=== PATIENT | male | born 2000 ===

== ENCOUNTER 2020-08-03 12:25 | Outpatient (REF) | payer OTHER, SELFPAY | END 2020-08-03 12:26 | disposition home or self-care (01) | LOC: HO.LAB 12:25 | PROVIDERS: Visit Provider Internal Medicine | DX: Z20.828 Contact with and (suspected) exposure to other viral communicable diseases (principal) | CPT/HCPCS: C9803; U0003 ==

== ENCOUNTER 2024-10-09 03:23 | Emergency (ER) | payer OTHER, SELFPAY ==
--- NOTE | ~2024-10-09 | XR_ITS ---
CLINICAL HISTORY: punched wall left hand 4th and 5th digit redness 3 view left hand Comparison: None Findings: There is a transverse nondisplaced fracture involving mid shaft of 5th metacarpal with no significant angulation. No dislocation. No additional fractures. No significant arthritic change. No erosions. No radiopaque foreign body. IMPRESSION: 1. Nondisplaced 5th metacarpal shaft fracture with no dislocation. This document has been electronically signed by: Aaliyah Ferris MD on 10/09/2024 04:42:12
[2024-10-09 03:40] VITALS: BP 133/62; PULSE 90; RESP 16; TEMP 36.8; O2SAT 97; BMI 22.8
--- NOTE | 2024-10-09 03:48 | PC.NURSE ---
ice pack given to pt and while waiting for provider and xr of hand.
[2024-10-09 09:08] VITALS: BP 140/79; PULSE 76; RESP 16; TEMP 37; O2SAT 99
[2024-10-09 10:24] VITALS: BP 145/86; PULSE 86; RESP 16; TEMP 36.8; O2SAT 98
--- NOTE | 2024-10-09 10:26 | ED_ITS ---
HPI - Extremity Problem General Chief complaint: Extremity Injury, Upper Stated complaint: l hand inj punched wall Time Seen by Provider: 10/09/24 10:26 History of Present Illness ED Provider: Bell GONZALEZ Narrative: The patient is a 24-year-old male who became upset after an argument with his girlfriend. He punched a wall and injured his left hand. No other injuries. He is not suicidal. Related Data Allergies Allergy/AdvReac Type Severity Reaction Status Date / Time No Known Allergies Allergy Unverified 10/09/24 03:45 Review of Systems Review of Systems: Yes all other systems are reviewed and are negative [facility] Social History Social History Advance Directives: No Advance Directives Information Provided: Yes Do you have a plan to hurt others: No Plan Physical Exam Vital Signs: Vital Signs: Last Vital Signs Temp 98.2 F 10/09/24 11:01 Pulse 86 10/09/24 11:01 Resp 16 10/09/24 11:01 BP 145/86 H 10/09/24 11:01 Pulse Ox 98 10/09/24 11:01 O2 Del Method Room Air 10/09/24 11:01 BMI result Body Mass Index 22.8 Const: Other: The patient is a 24-year-old male. He looks as though he is an ordinarily healthy 24-year-old. Does not appear in acute distress. HEENT: Other: Face is symmetrical. Mucous membranes moist. Eyes: General: appearance normal, both eyes and all related structures Neck: Neck: Yes full ROM Resp: Effort & Inspection: normal respiratory effort Skin: Other: Some mild soft tissue swelling over the ulnar side of the hand. Skin is intact. Neuro: Other: The patient is awake, alert, with a normal mental status. Cranial nerves are grossly intact. Intact sensation in the fingertips. Extrem: Other: The patient has some swelling on the ulnar side of the left hand. No gross deformity. Medications Administered Discontinued Medications Generic Name Dose Route Start Last Admin Trade Name Freq PRN Reason Stop Dose Admin Acetaminophen 975 mg 10/09/24 10:40 10/09/24 10:58 Acetaminophen 325 Mg Tablet PO 10/09/24 10:41 975 mg ONCE ONE Administration Ibuprofen 400 mg 10/09/24 10:40 10/09/24 10:59 Ibuprofen 400 Mg Tablet PO 10/09/24 10:41 400 mg ONCE ONE Administration Medical Decision Making Medical Decision Making MDM Narrative: The patient is a 24-year-old male who sustained an injury to his left hand when he punched a wall. He was upset because of an argument with his girlfriend. He is not suicidal and does not have any plans to harm himself in any other way. X-ray shows a midshaft fracture of the left 5th metacarpal bone without significant angulation. This is a closed fracture. I placed the patient in an ulnar gutter splint. He will be referred to Orthopedics. He was given a sling. Was given a work note. Procedures Orthopedic Splinting/Casting Injury #1: Side: left Upper Extremity Injury Location: hand Upper Extremity Immobilizer: ulnar gutter Additional Comments: Ulnar gutter splint made with cast padding, Orthoglass, and Harmeet bandages. Applied without difficulty. Patient tolerated application of the splint well. The patient remained neurovascularly intact after application of the splint. Discharge Plan Discharge Clinical Impression: Fracture of fifth metacarpal bone of left hand Patient Disposition: Home, Self-Care Instructions: Boxer Fracture (ED) Additional Instructions: You have a fracture of your 5th metacarpal bone. You has been placed in a splint to keep the fracture still. This kind of splint is called a ?ulnar gutter splint.? Please contact the orthopedic office today for a follow up appointment for additional advice and recommendations and management. Try to keep the hand elevated to the level of your heart or higher. This will reduce swelling and this will reduce pain. You may use ibuprofen and acetaminophen as needed for pain. Return to the emergency department if any problems. [place]: [facility] [place] Group] (5th metacarpal fracture) Stand Alone Forms: Work/School Release Interventions: ED Discharge Assessment Last Done: 10/09/24 11:01 Discharge Date/Time: 10/09/24 11:01 Print Language: Barbadian
--- NOTE | 2024-10-09 10:36 | PC.NURSE ---
Dr Luu to bedside for splint placement to left hand and d/c instructions
[2024-10-09] MEDS: Acetaminophen 325 MG TABLET 975 MG PO (10:58)
[2024-10-09] MEDS: Ibuprofen 400 MG TABLET PO (10:59)
[2024-10-09 11:01] VITALS: BP 145/86; PULSE 86; RESP 16; TEMP 36.8; O2SAT 98
--- OUTSIDE RECORDS SUMMARY | 2024-10-09 11:02 | XMS_ITS | Encounter Summary ---
Author Organization [facility] Address [address] [place] [address] Phone Care Team Providers Care Neurology Professor Name Role Phone Rachid Heard MD Primary Care Provider [phone] Encounter Details Date Type Department Care Team (Late st Contact Info) Description 04/06/2017 Conversion Encounter [facility] [address] [place] [address] Social History Tobacco Use Types Packs/Day Years Used Date Smoking Tobacco: Never Comments:Never smoker Sex and Gender Information Value Date Recorded Sex Assigned at Male 04/24/2019 1:28 PM EDT Legal Sex Male 4:56 PM EDT Gender Identity Male 04/24/2019 1:28 PM EDT Sexual Orientation Straight 04/24/2019 1: 28 PM EDT documented as of this encounter Plan of Treatment Not on file documented as of this encounter Visit Diagnoses Not on filedocumented in this encounter Care Teams Neurology Professor Relationship Specialty Start Date End Date Rachid Heard MD [address] [place] [address] PCP - General 03/31/17 09/10/19 documented as of this encounter
--- OUTSIDE RECORDS SUMMARY | 2024-10-09 11:02 | XMS_ITS | Encounter Summary ---
Author Organization [facility] Address [address] [place] [address] Phone Care Team Providers Care Beautician Apprentice Name Role Phone Rachid Heard MD Primary Care Provider [phone] Encounter Details Date Type Department Care Team (Late st Contact Info) Description 06/30/2011 Documentation [facility] [place] [address] [place] [address] Family Medicine, Physician [address] [place], [place] [id number] Social History Tobacco Use Types Packs/Day Years Used Date Smoking Tobacco: Never Assessed Sex and Gender Information Value Date Recorded Sex Assigned at Male 04/24/2019 1:28 PM EDT Legal Sex Male 4:56 PM EDT Gender Identity Male 04/24/2019 1:28 PM EDT Sexual Orientation Straight 04/24/2019 1: 28 PM EDT documented as of this encounter Plan of Treatment Not on file documented as of this encounter Visit Diagnoses Not on filedocumented in this encounter Care Teams Beautician Apprentice Relationship Specialty Start Date End Date Rachid Heard MD [address] [place] [address] [place] [address] PCP - General 03/31/17 09/10/19 documented as of this encounter
--- OUTSIDE RECORDS SUMMARY | 2024-10-09 11:02 | XMS_ITS | Clinical Summary ---
Author Organization [facility] Address [address] [place] [address] Phone Care Team Providers Care Help Aid Name Role Phone Unavailable Primary Care Provider Unavailabl e Allergies No known active allergies Medications No known medications Active Problems Problem Noted Date Diagnosed Date Attention deficit disorder (ADD) without hyperac tivity 04/25/2018 Overview (04/25/2018): Adderall prescribed by [facility] 03/09/2017 Epidermal nevus of scalp and neck 04/21/2016 Complete heart block 01/04/2010 Overview (10/04/2017): Diagnosed in 2000 and treated with pacemaker at [facility]. Yearly follow up at [facility] 2013 he presented to [facility] with chest pain and a troponin leak. Coronary sinus ostial stenosis was found and treated with balloon dilatation. Symptoms resolved. Congenital heart block 01/04/2010 Resolved Problems Problem Noted Date Diagnosed Date Resolved Date Refused influenza vaccine 08/16/2018 Sleep disorder 03/09/2017 04/24/2019 Immunizations Immunization Administration Dates Next Due DTP 1998,1998,1998 DTaP 5 06/19/2003,01/20/2000 HPV, Quadrivalent 12/30/2013,12/13/2012,10/04/19 13 Hep A, ped/adol 01/01/2015,12/30/2013 Hep B, ped/adol 1998,1998,1998 Hib (PRP-T) 01/20/2000, 9,1998,09/02 IPV 06/19/2003,1998,1998 Influenza Split 10/04/2012,06/13/2011 Influenza, injectable, quadr ivalent, preservative free 04/24/2019,04/21/2016,12/30/2013 MMR 06/19/2003,08/09/1999 Meningococcal B Trumenba 04/24/2019,04/25/2018 Meningococcal Conj (Menactra) MCV4P 02/25/2016,1 OPV 08/09/1999 Tdap 06/13/2011 Varicella 12/06/2007,08/09/1999 Family History Medical History Relation Name Comments Testicular cancer Father Les Relation Name Status Comments Brother Marcelinoer Alive Brother: Alive and well Father Les Alive Father: Alive a nd well Maternal Grandmother Materna l grandmother: cancer Mother Faby Alive Mother: Hyperte nsion Other Family history of Diabetes mellitus, Family history of Obesity, No family history of *Dental caries, Family history of *Sudden /[place] under 55, Family history of *Heart Disease, Family history of Sudden /[place] under age 55, Family history of *CVA/Stroke Sister Harmony Alive Sister: Alive a nd well Social History Tobacco Use Types Packs/Day Years Used Date Smoking Tobacco: Never Smokeless Tobacco: Never Comments:Never smoker Hunger/Food Answer Date Recorded No 05/16/2020 Stable Housing Answer Date Recorded No 05/16/2020 Transportation Concerns Answer Date Rec orded No 05/16/2020 Hazards in Home Answer Date Recorded No 07/04/2020 Financing Utilities Answer Date Recorde d No 07/04/2020 Safety at Home Answer Date Recorded No 07/04/2020 Outside Support Answer Date Recorded No 07/04/2020 Understanding Health Concerns Answer Da te Recorded No 07/04/2020 Financing Health Concerns Answer Date R ecorded No 07/04/2020 Missing School or Work Answer Date Nicolas rded No 07/04/2020 Sex and Gender Information Value Date Recorded Sex Assigned at Male 04/24/2019 1:28 PM EDT Legal Sex Male 4:56 PM EDT Gender Identity Male 04/24/2019 1:28 PM EDT Sexual Orientation Straight 04/24/2019 1: 28 PM EDT Last Filed Vital Signs Vital Sign Reading Time Taken Comments Blood Pressure 115/76 04/24/2019 1:04 PM EDT Pulse 73 04/24/2019 1:04 PM EDT Temperature 36.8 ??C (98.3 ??F) 06/20/2018 4:36 PM ED T Respiratory Rate - - Oxygen Saturation - - Inhaled Oxygen Concentration - - Weight 82.6 kg (182 lb) 04/24/2019 1:04 PM EDT Height 175.3 cm (5' 9 ) 04/24/2019 1:04 PM EDT Body Mass Index 26.88 04/24/2019 1:04 PM EDT Plan of Treatment Health Maintenance Due Date Last Done Comments DTaP,Tdap,and Td Vaccines (7 - Td or Tdap) 06/13/2021 06/13/2011, 06/19/2003, 01/20/2000, Additional history exists Influenza Vaccines (#1) 2024 04/24/20, 04/21/2016, 12/30/2013, Additional history exists COVID-19 Vaccine ( season) 2024 01/11/2021, 12/21/2020 Hepatitis B Vaccines Completed 1998, 1998, 1998 HIB Vaccines Completed 01/20/2000, 12/19, 1998, Additional history exists IPV Vaccines Completed 06/19/2003, 07/22, 1998, Additional history exists MMR Vaccines Completed 06/19/2003, 08/09/1999 Varicella Vaccines Completed 12/06/2007, 08/09/1999 HPV Vaccines Completed 12/30/2013, 11/20, 10/04/2012 Hepatitis A Vaccines Completed 01/01/2015, 12/31/19 14 Meningococcal Vaccine Completed 02/25/2016, 011 Men B Vaccine Completed 04/24/2019, 04/25/2018 Pneumococcal Vaccine Aged Out No long er eligible based on patient's age to complete this topic Insurance [facility] NON PCC
--- OUTSIDE RECORDS SUMMARY | 2024-10-09 11:02 | XMS_ITS | Encounter Summary ---
Author Organization [facility] Address [address] [place] [address] Phone Care Team Providers Care Waterworks Chief Engineer Name Role Phone Rachid Heard MD Primary Care Provider [phone] Encounter Details Date Type Department Care Team (Late st Contact Info) Description 06/30/2011 Documentation [facility] [place] [address] [place] [address] Family Medicine, Physician [address] [place], [place] [phone] Social History Tobacco Use Types Packs/Day Years [...] on filedocumented in this encounter Care Teams Waterworks Chief Engineer Relationship Specialty Start Date End Date Rahcid Heard MD [address] [place] [address] [place] [address] PCP - General 03/31/17 09/10/19 documented as of this encounter
--- OUTSIDE RECORDS SUMMARY | 2024-10-09 11:03 | XMS_ITS | Encounter Summary ---
Author Organization [facility] Address [address] [place] [address] Phone Care Team Providers Care Bookkeeping Manager Name Role Phone Rachid Heard MD Primary Care Provider [phone] Encounter Details Date Type Department Care Team (Late st Contact Info) Description 09/26/2013 Documentation [facility] [place] Family Medicine [address] [place], [place] [phone] Family Medicine, Physician [address] [place], [place] [phone] Social History Tobacco Use Types Packs/Day Years [...] on filedocumented in this encounter Care Teams Bookkeeping Manager Relationship Specialty Start Date End Date Rachid Heard MD [address] [place] [address] [place] [address] PCP - General 03/31/17 09/10/19 documented as of this encounter
== END 2024-10-09 11:01 | disposition home or self-care (01) ==
PROVIDERS: Emergency Provider Emergency Medicine
DX: S62.327A Displaced fracture of shaft of fifth metacarpal bone, left hand, initial encounter for closed fracture (principal); W22.09XA Striking against other stationary object, initial encounter; Y93.89 Activity, other specified; Y92.9 Unspecified place or not applicable; Y99.9 Unspecified external cause status
CPT/HCPCS: 29125; 73110; 73130; 99283

== ENCOUNTER → 2024-10-09 03:50 | Outpatient (BNV) | payer OTHER, SELFPAY | PROVIDERS: Visit Provider Specialist | DX: S62.357A Nondisplaced fracture of shaft of fifth metacarpal bone, left hand, initial encounter for closed fracture (principal) | CPT/HCPCS: 73130 ==

== ENCOUNTER 2024-10-15 09:16 | Outpatient (REF) | payer OTHER, SELFPAY ==
--- NOTE | ~2024-10-15 | XR_ITS ---
CLINICAL HISTORY: M79.642 - Pain in left hand 4 views left hand Comparison: CR - XR HAND WRIST LT - 10/09/24 04:02 EST Findings: Complete transverse fracture through the shaft of the 5th metacarpal bone shows no interval healing.No change in the mild angulation deformity. No foreshortening No periostitis or bony destruction. Joint intervals are preserved. Ulnar styloid perserved. Normal bone mineralization and soft tissues. Carpal bones unremarkable.. No radiopaque foreign body. Impression: 1. Complete transverse fracture through the mid shaft of the 5th metacarpal bone with no interval healing. No foreshortening or significant change in the subtle angulation deformity. This document has been electronically signed by: Carlos A Mercado MD on 10/16/2024 12:14:09
== END 2024-10-15 09:17 | disposition home or self-care (01) ==
LOC: HO.HOSX 09:16
PROVIDERS: Visit Provider Orthopaedic Surgery
DX: S62.357D Nondisplaced fracture of shaft of fifth metacarpal bone, left hand, subsequent encounter for fracture with routine healing (principal); M79.642 Pain in left hand
CPT/HCPCS: 73130

== ENCOUNTER 2024-10-15 13:04 | Outpatient (AMB) | payer OTHER, SELFPAY ==
--- NOTE | 2024-10-15 13:16 | A.OFFVIS_ITS ---
Intake Visit Reasons: FC-of 5th metacarpal bone of LT hand-DOI 10/09/24 Intake Note: Tico is a 24 year old male who presents today for a an ER follow up of left hand 5th MC fx, DOI 10/09/24. He is ambidextrious. Patient reports out of frustration he punched a wall. He presnted to [facility] same day where x-rays were taken and placed in a splint. Splint removed and x-rays updated. Currently he reports some pain and numbness in his pinky finger and half of the ring finger. He is taking Tylenol as needed. Back Feeder Plywood Layup Line Required: No Allergies No Known Allergies Allergy (Unverified 10/15/24 13:34) Medication List - Last Reconciled 10/15/24 by Melissa Rust RN No Known Home Meds HPI HPI FC-of 5th metacarpal bone of LT hand-DOI 10/09/24: Details: Tico is a 24 year old right hand dominant man who presents for a left 5th metacarpal fracture, after punching a wall, DOI: 10/09/24. He was seen in the ED and placed in an ulnar gutter splint. He complains of pain & numbness in his small finger. He also has some numbness in his ring finger. His sensation was normal prior to his injury. Review of Systems Const All systems reviewed & are unremarkable except as noted in HPI and below Physical Exam Const General: cooperative, healthy appearing and no acute distress Orientation/consciousness: patient oriented x3 HEENT Head: Yes normocephalic and Yes atraumatic Eyes EOM: EOMs intact bilaterally Resp Effort & Inspection: normal respiratory effort and able to speak in complete sentences Cardio Jugular venous distension: no JVD Skin General skin exam: turgor normal Rashes: no rashes Neuro General: patient oriented x3 Extrem Other: Evaluation of Left Upper Extremity: The patient is alert, oriented, and in no acute distress Neuro: Median, Ulnar, Radial nerves motor and sensory intact and sensation is normal to the tips of all digits Vascular: Cap refill brisk ROM: He can make a fist and extend all his digits Skin: No lacerations or abrasions or evidence of open fracture General: No Erythema or evidence of infection. Resolving ecchymosis & swelling Most tender over the fracture site Radiographs: 3 views of the left hand were taken and viewed by me today in clinic. they show a 5th metacarpal shaft fracture with ~20 degrees apex dorsal angulation Psych Appearance: grossly normal Affect: normal affect Attitude: cooperative Assessment & Plan Assessment & Plan (1) Fracture of fifth metacarpal bone of left hand: Code(s): S62.307A - Unspecified fracture of fifth metacarpal bone, left hand, initial encounter for closed fracture Category: Medical Plan Assessment & Plan: 1. Left 5th metacarpal shaft fracture, 20 degrees apex dorsal From a punching injury, DOI: 10/09/24 I educated him about this condition I discussed operative and non-operative treatment options The patient would like to proceed with surgery The risks and benefits of operative treatment were discussed with the patient and the patient wishes to proceed with surgery. These risks include, but are not limited to risk of damage to blood vessels, nerves, tendons, infection, recurrence, incomplete relief of preoperative symptoms, persistent pain, possible need for further surgery and the risks associated with regional blocks and anesthesia. The plan is to take the patient to the operating room sometime on 10/17/24 for the following procedures: 1. Left 5th metacarpal CRPP vs ORIF, under general All of the preoperative paperwork including the consent was reviewed today. All the patient's questions were answered. The patient understands that they will be contacted by our box covering machine operator soon to schedule this procedure He denies Diabetes, blood thinners, asthma, heart, lung, kidney issues He has a pacemaker from a congenital heart issue. Dr. Aleman at [facility] as his glass cutting machine feeder who he reportedly saw 5 months ago. Scribed for Ashley Bourgeois MD by Wilmer Starkey emergency medical service coordinator, on 10/15/24 at 1:45 PM, EST. Orders: Orders XR hand LT min 3V Today M79.642 - Pain in left hand Coding Level of Care Code New Pt Level 4 (06677) Diagnoses Fracture of fifth metacarpal bone of left hand S62.307A
--- OUTSIDE RECORDS SUMMARY | 2024-10-15 16:01 | XMS_ITS | Encounter Summary ---
Author Organization [facility] Address [address] [place] [address] Phone Care Team Providers Care Bank Accountant Name Role Phone Rachid Heard MD Primary Care Provider Encounter Details Date Type Department Care Team (Late st Contact Info) Description 06/30/2011 Documentation [facility] [place] [address] [place] [address] Family Medicine, Physician [address] [place], [place] [phone] Social History Tobacco Use Types Packs/Day Years [...] on filedocumented in this encounter Care Teams Bank Accountant Relationship Specialty Start Date End Date Rachid Heard MD [address] [place] [address] [place] [address] PCP - General 03/31/17 09/10/19 documented as of this encounter
--- OUTSIDE RECORDS SUMMARY | 2024-10-15 16:01 | XMS_ITS | Encounter Summary ---
Author Organization [facility] Address [address] [place] [address] Phone Care Team Providers Care Behavior Clinician Name Role Phone Rachid Heard MD Primary Care Provider [phone] Encounter Details Date Type Department Care Team (Late st Contact Info) Description 06/30/2011 Documentation [facility] [place] Medicine [address] [place] [address] Family Medicine, Physician [address] [place], [place] [phone] Social History Tobacco Use Types Packs/Day Years [...] on filedocumented in this encounter Care Teams Behavior Clinician Relationship Specialty Start Date End Date Rachid Heard MD [address] [place] [address] [place] [address] PCP - General 03/31/17 09/10/19 documented as of this encounter
--- OUTSIDE RECORDS SUMMARY | 2024-10-15 16:01 | XMS_ITS | Clinical Summary ---
Author Organization [facility] Address [address] [place] [address] Phone Care Team Providers Care Pulp Refiner Operator Name Role Phone Unavailable Primary Care Provider Unavailabl e Allergies No known active allergies Medications No known medications Active Problems Problem Noted Date Diagnosed Date Attention deficit disorder (ADD) without hyperac tivity 04/25/2018 Overview (04/25/2018): Adderall prescribed by [facility] 03/09/2017 Epidermal nevus of scalp and neck 04/21/2016 Complete heart block 01/04/2010 Overview (10/04/2017): Diagnosed in 2000 and treated with pacemaker at [facility]. Yearly follow up at [facility] 2013 he presented to [facility] with chest pain and a troponin [...] of *Dental caries, Family history of *Sudden /[place] under 55, Family history of *Heart Disease, Family history of Sudden /[place] under age 55, Family history of *CVA/Stroke [...] 07/04/2020 Missing School or Work Answer Date Nioclas rded No 07/04/2020 Sex and Gender Information [...] patient's age to complete this topic Insurance [facility] NON PCC
--- OUTSIDE RECORDS SUMMARY | 2024-10-15 16:01 | XMS_ITS | Encounter Summary ---
Author Organization [facility] Address [address] [place] [address] Phone Care Team Providers Care Facer Operator Name Role Phone Rachid Heard MD Primary Care Provider [phone] Encounter Details Date Type Department Care Team (Late st Contact Info) Description 09/26/2013 Documentation [facility] [place] Family Medicine [address] [place], [place] [phone] Family Medicine, Physician [address] [place], [place] [phone] Social History Tobacco Use Types Packs/Day Years [...] on filedocumented in this encounter Care Teams Facer Operator Relationship Specialty Start Date End Date Rachid Heard MD [address] [place] [address] [place] [address] PCP - General 03/31/17 09/10/19 documented as of this encounter
--- OUTSIDE RECORDS SUMMARY | 2024-10-15 16:01 | XMS_ITS | Encounter Summary ---
Author Organization [facility] Address [address] [place] [address] Phone Care Team Providers Care E Commerce Manager Name Role Phone Rachid Heard MD Primary Care Provider [phone] Encounter Details Date Type Department Care Team (Late st Contact Info) Description 04/06/2017 Conversion Encounter [facility] [address] [place] [address] Social History Tobacco Use Types Packs/Day Years [...] on filedocumented in this encounter Care Teams E Commerce Manager Relationship Specialty Start Date End Date Rachid Heard MD [address] [place] [address] PCP - General 03/31/17 09/10/19 documented as of this encounter
== END 2024-10-15 14:23 | disposition home or self-care (01) ==
PROVIDERS: Visit Provider Orthopaedic Surgery
DX: S62.307A Unspecified fracture of fifth metacarpal bone, left hand, initial encounter for closed fracture (principal)
CPT/HCPCS: 99204

== ENCOUNTER → 2024-10-15 13:07 | Outpatient (BNV) | payer OTHER, SELFPAY | PROVIDERS: Visit Provider Radiology Diagnostic Radiology | DX: S62.357A Nondisplaced fracture of shaft of fifth metacarpal bone, left hand, initial encounter for closed fracture (principal) | CPT/HCPCS: 73130 ==

== ENCOUNTER 2024-10-17 07:43 | Day surgery (SDC) | payer OTHER, SELFPAY ==
--- NOTE | 2024-10-16 12:19 | P.CONAN_ITS ---
Documented by User: Karishma Regan NP 10/16/24 12:22 HPI - Anesthesia Eval Consult details Narrative: 24yo M for Left 5th Metacarpal CRPP vs ORIF Follows [facility] Cardiology for: Congenital heart block with pacer at age 1. Changed to [employer] 2012 d/t concerns of pacer-mediated CMP (48% at that time?) Last office visit 12/2023, stable with 1 year routine f/u Requested last interrogation and ECHO - MERON Delgado at ortho office working on it [facility] Past Medical History Medical History Hx of cardiac pacemaker Congenital heart block Social History Social History Tobacco use type: Smokeless Tobacco Meds Allergies Allergy/AdvReac Type Severity Reaction Status Date / Time No Known Allergies Allergy Unverified 10/15/24 13:34 Assessment and Plan Assessment Anesthesia Assessment: Chart Reviewed Documented by User: Jennifer Campbell MD 10/17/24 12:30 [facility] Past Medical History Medical History Hx of cardiac pacemaker Congenital heart block Family History Family history of problems with anesthesia: No Surgical History History of Problems with Anesthesia: No Social History Social History Tobacco use type: Smokeless Tobacco Meds Allergies Allergy/AdvReac Type Severity Reaction Status Date / Time No Known Allergies Allergy Unverified 10/15/24 13:34 Exam Airway Mallampati Class: II TM Dist: >3cm Neck ROM: Full Heart: rrr Lungs: cta Assessment and Plan Assessment Anesthesia Assessment: Anesthesia Plan Discussed Final Anesthetic Review Family History of Problems with Anesthesia: No History of Problems with Anesthesia: No NPO: Yes ASA Class: III Final Preanesthetic Review: No Changes in Pt Med Stat, Meds/Allgs Chart Reviewed, Consent Obtained/Reviewed and Anes Risks/Benef Reviewed Patient Risk: Intermediate Procedure Risk: Low Anesthetic Plan Anesthetic Plan: GA Disposition: Standard PACU
--- NOTE | ~2024-10-17 | FL_ITS ---
EXAMINATION: FL GUIDANCE ONLY HISTORY: 5th metacarpal CRPP vs ORIF left COMPARISON: Comparison is made with the prior examination of the left hand dated 10/15/2024. TECHNIQUE: Fluoroscopy time: 7.2 seconds. Cumulative Dose: 0.2398 mGy. DAP: 0.0145 mGym2 Images: 4. FINDINGS: Images demonstrate placement of the wire across the previously noted fracture of the 5th metacarpal diaphysis. The bones are in anatomic alignment. FL/FL guidance in OR IMPRESSION: Fluoroscopy during procedure. Please see procedure report for additional information. Electronically signed by: Robinson Sánchez MD 10/17/2024 03:24 PM AMIRAH
[2024-10-17 07:54] VITALS: BMI 23.1
[2024-10-17 08:10] VITALS: BP 111/69; PULSE 66; RESP 15; TEMP 36.6; O2SAT 98
[2024-10-17] MEDS: Lactated Ringers 1,000 ML 50 ML IVCONT (08:32)
--- NOTE | 2024-10-17 09:00 | MHC.SHP ---
Pre-Procedural Eval Section A - 24 Hr Update-Section A only Date of Service: 10/17/24 The patient is an INPATIENT: No Changes since office visit: No Cold of Flu in the past 2 weeks, No New Medical Problems, No Changes in Medication and No Patient answered all questions The patient has been examined within 24 hours of the surgical procedure. The History & Physical has been completed within 30 days and I have reviewed it.: Yes Section B - Complete if H&P > 30 days Chief Complaint: Unspecified fracture of fifth metacarpal bone, Allergies: Allergies Allergy/AdvReac Type Severity Reaction Status Date / Time No Known Allergies Allergy Unverified 10/15/24 13:34 Plan Diagnosis/Plan: Unchanged I have reviewed the history and physical and performed a pertinent physical examination on my patient. No changes have occurred unless specified. Time Spent With Patient Time: Total time managing care of this patient today ____ minutes.
--- NOTE | 2024-10-17 09:04 | W.PM.OPN ---
Operative Note Operative Note Date of Service: 10/17/24 Narrative: Operative Note Narrative: Preop diagnosis: 1. Left 5th Metacarpal shaft fracture Postop diagnosis: Same Procedure: 1. Left 5th Metacarpal fracture closed reduction percutaneous pinning 2. Ulnar nerve block Surgeon: Ashley Bourgeois MD Pharmacy Analyst: Roscoe DAVIS Anesthesia: General Anesthesia Findings: Metacarpal fracture Implants: 0.054 K-wires times 1 Tourniquet time: None EBL: Minimal Specimen: None Drains: None Complications: None Disposition: Brought to the recovery room in stable condition Plan: Follow-up in 10-14 days for a wound check, postop radiographs and for placement in a short-arm cast or splint Anticipate K-wire removal in 4 weeks based on interval bony healing Educate the patient that full fracture healing anticipated in approximately 8-12 weeks. Indications: The patient is 24 years old with a left 5th metacarpal shaft fracture . The risks and benefits of operative treatment, including but not limited to risk of damage to blood vessels, nerves, tendons, infection, recurrence, delayed or nonunion of fracture, persistent pain or numbness, incomplete resolution of preoperative symptoms, or need for further surgery were discussed with the patient and they wished to proceed with surgery. Procedure: Once consent was obtained patient was brought back to the operating suite and placed in the operating table in a supine position. . Perioperative antibiotics and general anesthesia was administered by the anesthesia team. A tourniquet was applied to the proximal aspect of the left upper extremity and the limb was prepped and draped in a standard surgical fashion. Tourniquet was not inflated during the case. The FluoroScan was used during the case to assist with our fracture reduction and placement of all implants. A closed reduction was performed on the patient's left 5th metacarpal shaft fracture. I placed a single 0.054 K-wire retrograde through the head of the left 5th metacarpal extending proximally across the fracture site to the base of the metacarpal. Fracture alignment was assessed for both angular and rotational malalignment. Once satisfied with our fracture reduction and implant placement, the K-wire was bent and cut short and pin caps applied. Final fluoroscopic images were then obtained. The wounds were copiously irrigated with normal saline. An ulnar nerve block was then performed by infiltrating about the ulnar nerve at the wrist with some 1% lidocaine with epinephrine for postop pain control. A Sterile dressing and short volar splint was applied. The patient appears to have tolerated the procedure well and with no complications. All digits were well vascularized at the conclusion of the case.
[2024-10-17 10:07] VITALS: BP 95/40; PULSE 60; RESP 12; TEMP 37; O2SAT 97
[2024-10-17 10:12] VITALS: BP 99/47; PULSE 60; RESP 14; O2SAT 99
[2024-10-17 10:17] VITALS: BP 104/48; PULSE 64; RESP 14; O2SAT 97
[2024-10-17 10:22] VITALS: BP 104/57; PULSE 71; RESP 16; O2SAT 99
[2024-10-17 10:37] VITALS: BP 105/54; PULSE 65; RESP 16; TEMP 37; O2SAT 100
== END 2024-10-17 11:21 | disposition home or self-care (01) ==
PROVIDERS: Visit Provider Orthopaedic Surgery
PROC: (CPT 26615; principal; 2024-10-17 09:30)
DX: S62.327A Displaced fracture of shaft of fifth metacarpal bone, left hand, initial encounter for closed fracture (principal); M79.645 Pain in left finger(s); R20.0 Anesthesia of skin; W22.09XA Striking against other stationary object, initial encounter; Y93.89 Activity, other specified; Y92.9 Unspecified place or not applicable; Y99.9 Unspecified external cause status; Q24.6 Congenital heart block; Z95.0 Presence of cardiac pacemaker
CPT/HCPCS: 26608; J0131; J0690; J1100; J2003; J2004; J2250; J2405; J2704; J3010

== ENCOUNTER → 2024-10-17 07:43 | Outpatient (BNV) | payer OTHER, SELFPAY | PROVIDERS: Visit Provider Orthopaedic Surgery | DX: S62.307A Unspecified fracture of fifth metacarpal bone, left hand, initial encounter for closed fracture (principal) | CPT/HCPCS: 26608 ==

== ENCOUNTER 2024-11-01 08:47 | Outpatient (REF) | payer OTHER, SELFPAY ==
--- NOTE | ~2024-11-01 | XR_ITS ---
EXAMINATION: XR HAND 3 OR MORE VIEWS LEFT HISTORY: M79.642 - Pain in left hand COMPARISON: Comparison is made with the prior examination dated 10/15/2024. FINDINGS: Three views of the left hand are submitted. Osseous mineralization is normal. Interval since the prior study, the patient is status post internal fixation of the previously seen fracture of the midshaft of the 5th metacarpal with a single pin. Alignment is anatomic. There is callus formation noted at the fracture site, consistent with healing. The fracture line remains visible. The joint spaces are preserved. The soft tissues are unremarkable. XR/XR hand LT min 3V IMPRESSION: Healing internally fixed fracture of the midshaft of the 5th metacarpal. Electronically signed by: Robinson Sánchez MD 11/01/2024 10:41 AM EDT
--- OUTSIDE RECORDS SUMMARY | 2024-11-01 09:05 | XMS_ITS | Encounter Summary ---
Author Organization [facility] Address [address] [place] [address] Phone Care Team Providers Care Granite Countertop Installer Name Role Phone Rachid Heard MD Primary Care Provider [phone] Encounter Details Date Type Department Care Team (Late st Contact Info) Description 04/06/2017 Conversion Encounter [facility] [place] [address] [place] [address] Social History Tobacco Use Types Packs/Day Years [...] on filedocumented in this encounter Care Teams Granite Countertop Installer Relationship Specialty Start Date End Date Rachid Heard MD [address] [place] [address] PCP - General 03/31/17 09/10/19 documented as of this encounter
--- OUTSIDE RECORDS SUMMARY | 2024-11-01 09:05 | XMS_ITS | Encounter Summary ---
Author Organization [facility] Address [address] [place] [address] Phone Care Team Providers Care Commercial Journeyman Electrician Name Role Phone Rachid Heard MD Primary Care Provider [phone] Encounter Details Date Type Department Care Team (Late st Contact Info) Description 06/30/2011 Documentation [facility] [place] Family Medicine [address] [place] [address] Family Medicine, Physician [address] [place], [place] [phone] Social History Tobacco Use Types Packs/Day Years [...] on filedocumented in this encounter Care Teams Commercial Journeyman Electrician Relationship Specialty Start Date End Date Rachid Heard MD [address] [place] [address] [place] [address] PCP - General 03/31/17 09/10/19 documented as of this encounter
--- OUTSIDE RECORDS SUMMARY | 2024-11-01 09:05 | XMS_ITS | Encounter Summary ---
Author Organization [facility] Address [address] [place] [address] Phone Care Team Providers Care Terrazzo Mechanic Name Role Phone Rachid Heard MD Primary Care Provider [phone] Encounter Details Date Type Department Care Team (Late st Contact Info) Description 06/30/2011 [place] [facility] [place] [address] [place] [address] Family Medicine, Physician [address] [place], [place] [phone] Social History Tobacco Use Types Packs/Day Years [...] on filedocumented in this encounter Care Teams Terrazzo Mechanic Relationship Specialty Start Date End Date Rachid Heard MD [address] [place] [address] [place] [address] PCP - General 03/31/17 09/10/19 documented as of this encounter
--- OUTSIDE RECORDS SUMMARY | 2024-11-01 09:05 | XMS_ITS | Clinical Summary ---
Author Organization [facility] Address [address] [place] [address] Phone Care Team Providers Care Financial Retirement Plan Specialist Name Role Phone Unavailable Primary Care Provider Unavailabl e Allergies No known active allergies Medications No known medications Active Problems Problem Noted Date Diagnosed Date Attention deficit disorder (ADD) without hyperac tivity 04/25/2018 Overview (04/25/2018): Adderall prescribed by [facility] 03/09/2017 Epidermal nevus of scalp and neck 04/21/2016 Complete heart block 01/04/2010 Overview (10/04/2017): Diagnosed in 2000 and treated with pacemaker at [facility]. Yearly follow up at [facility] 2013 he presented to [facility] with chest pain and a troponin [...] of *Dental caries, Family history of *Sudden /OR under 55, Family history of *Heart Disease, Family history of Sudden /OR under age 55, Family history of *CVA/Stroke [...] patient's age to complete this topic Insurance [facility] NON PCC
--- OUTSIDE RECORDS SUMMARY | 2024-11-01 09:05 | XMS_ITS | Encounter Summary ---
Author Organization [facility] Address [address] [place] [address] Phone Care Team Providers Care Security Incident Handler Name Role Phone Rachid Heard MD Primary Care Provider [phone] Encounter Details Date Type Department Care Team (Late st Contact Info) Description 09/26/2013 Documentation [facility] [place] Family Medicine [address] [place], [place] [phone] Family Medicine, Physician [address] [place], [place] [phone] Social History Tobacco Use Types Packs/Day Years [...] on filedocumented in this encounter Care Teams Security Incident Handler Relationship Specialty Start Date End Date Rachid Heard MD [address] [place] [address] [place] [address] PCP - General 03/31/17 09/10/19 documented as of this encounter
== END 2024-11-01 08:48 | disposition home or self-care (01) ==
LOC: HO.HOSX 08:47
DX: M79.642 Pain in left hand (principal); S62.302D Unspecified fracture of third metacarpal bone, right hand, subsequent encounter for fracture with routine healing
CPT/HCPCS: 73130

== ENCOUNTER 2024-11-01 09:04 | Outpatient (AMB) | payer OTHER, SELFPAY ==
--- NOTE | 2024-11-01 09:08 | MHC.OFFVIS ---
Vital Signs 11/01/24 09:09 Height 5 ft 10 in Weight 160 lb BMI 23.0 Intake Visit Reasons: PO LT 5th MC ORIF 10/17/24 AR Intake Note: Tico is a 24 year old right hand dominant male who presents today post-operatively s/p left 5th metacarpal ORIF, DOS: 10/17/24, by Dr. Bourgeois. Plans for today include short-arm cast or splint with anticipation of K-wire removal in 2 weeks. Patient reports he does not have any pain but does have some tingling in his 4th and 5th digits. Allergies No Known Allergies Allergy (Unverified 11/01/24 09:08) HPI HPI PO LT 5th MC ORIF 10/17/24 AR: Details: Tico is a 24 year old right hand dominant male who presents today post-operatively s/p left 5th metacarpal ORIF, DOS: 10/17/24, by Dr. Bourgeois. Plans for today include short-arm cast or splint with anticipation of K-wire removal in 2 weeks. Patient reports he does not have any pain but does have some tingling in his 4th and 5th digits. Denies any other acute complaints or concerns at this time [facility] Medical History Hx of cardiac pacemaker Congenital heart block Social History Tobacco use type: Smokeless Tobacco Review of Systems Const All systems reviewed & are unremarkable except as noted in HPI and below Physical Exam Vital Signs: BMI result Body Mass Index 23.0 Const General: cooperative, healthy appearing and no acute distress Orientation/consciousness: patient oriented x3 HEENT Head: Yes normocephalic and Yes atraumatic Eyes EOM: EOMs intact bilaterally Resp Effort & Inspection: normal respiratory effort and able to speak in complete sentences Cardio Jugular venous distension: no JVD Skin General skin exam: turgor normal Rashes: no rashes Neuro General: patient oriented x3 Extrem Other: Evaluation of Left Upper Extremity: The patient is alert, oriented, and in no acute distress Neuro: Median, Ulnar, Radial nerves motor and sensory intact and sensation is normal to the tips of all digits Vascular: Cap refill brisk ROM: He can make a fist and extend all his digits Skin: No lacerations or abrasions or evidence of open fracture Pin site noted on the dorsal aspect of the left small finger MCP joint, no evidence of infection General: No Erythema or evidence of infection. Resolving ecchymosis & swelling Mildly tender over the fracture site Psych Appearance: grossly normal Affect: normal affect Attitude: cooperative Results Reviewed Results Reviewed: X-rays obtained in the office today and independently reviewed by me, Roscoe Burden PA-C, demonstrate surgically reduced fracture of the left 5th metacarpal shaft with all orthopedic hardware in place, in satisfactory clinical alignment, and with evidence of interval bony healing. Assessment & Plan Assessment & Plan (1) Fracture of fifth metacarpal bone of left hand: Code(s): S62.307A - Unspecified fracture of fifth metacarpal bone, left hand, initial encounter for closed fracture Category: Medical Plan 1. Status post CRPP of left 5th metacarpal DOS 10/17/2024 Patient appears to be recovering well postoperatively Patient is educated about the typical recovery course At this time, patient was placed into a 2 finger ulnar gutter cast Patient is educated on proper cast care and precautions Patient will follow-up in 2 weeks with repeat x-rays for reassessment, anticipate cast removal at that time, sooner with any acute concerns Orders: Orders XR hand LT min 3V Today M79.642 - Pain in left hand Coding Level of Care Code Global (86940) Diagnoses Fracture of fifth metacarpal bone of left hand S62.307A
[2024-11-01 09:09] VITALS: BMI 23.0
--- OUTSIDE RECORDS SUMMARY | 2024-11-01 09:36 | XMS_ITS | Encounter Summary ---
Author Organization [facility] Address [address] [place] [address] Phone Care Team Providers Care Banquet Houseperson Name Role Phone Rachid Heard MD Primary Care Provider [phone] Encounter Details Date Type Department Care Team (Late st Contact Info) Description 04/06/2017 Conversion Encounter [facility] [place] [address] [place] [address] Social History Tobacco Use Types Packs/Day Years [...] on filedocumented in this encounter Care Teams Banquet Houseperson Relationship Specialty Start Date End Date Rachid Heard MD [address] [place] [address] PCP - General 03/31/17 09/10/19 documented as of this encounter
--- OUTSIDE RECORDS SUMMARY | 2024-11-01 09:37 | XMS_ITS | Encounter Summary ---
Author Organization [facility] Address [address] [place] [address] Phone Care Team Providers Care Specifications Checker Name Role Phone Rachid Heard MD Primary Care Provider [phone] Encounter Details Date Type Department Care Team (Late st Contact Info) Description 06/30/2011 Documentation [facility] [place] Family Medicine [address] [place] [address] Family Medicine, Physician [address] [place], [place] [phone] Social History Tobacco Use Types Packs/Day Years [...] on filedocumented in this encounter Care Teams Specifications Checker Relationship Specialty Start Date End Date Rachid Heard MD [address] [place] [address] [place] [address] PCP - General 03/31/17 09/10/19 documented as of this encounter
--- OUTSIDE RECORDS SUMMARY | 2024-11-01 09:37 | XMS_ITS | Encounter Summary ---
Author Organization [facility] Address [address] [place] [address] Phone Care Team Providers Care Wound/Ostomy Nurse Name Role Phone Rachid Heard MD Primary Care Provider [phone] Encounter Details Date Type Department Care Team (Late st Contact Info) Description 06/30/2011 Documentation [facility] [place] [address] [place] [address] Family Medicine, Physician [address] [place], [place] [phone] Social History Tobacco Use Types Packs/Day Years [...] on filedocumented in this encounter Care Teams Wound/Ostomy Nurse Relationship Specialty Start Date End Date Rachid Heard MD [address] [place] [address] [place] [address] PCP - General 03/31/17 09/10/19 documented as of this encounter
--- OUTSIDE RECORDS SUMMARY | 2024-11-01 09:37 | XMS_ITS | Clinical Summary ---
Author Organization [facility] Address [address] [place] [address] Phone Care Team Providers Care Electric Arc Furnace Operator Name Role Phone Unavailable Primary Care Provider Unavailabl e Allergies No known active allergies Medications No known medications Active Problems Problem Noted Date Diagnosed Date Attention deficit disorder (ADD) without hyperac tivity 04/25/2018 Overview (04/25/2018): Adderall prescribed by [facility] 03/09/2017 Epidermal nevus of scalp and neck 04/21/2016 Complete heart block 01/04/2010 Overview (10/04/2017): Diagnosed in 2000 and treated with pacemaker at [facility]. Yearly follow up at [facility] 2013 he presented to [facility] with chest pain and a troponin [...] of *Dental caries, Family history of *Sudden /[place] under 55, Family history of *Heart Disease, Family history of Sudden /[place] under age 55, Family history of *CVA/Stroke [...] patient's age to complete this topic Insurance [facility] NON PCC
--- OUTSIDE RECORDS SUMMARY | 2024-11-01 09:37 | XMS_ITS | Encounter Summary ---
Author Organization [facility] Address [address] [place] [address] Phone Care Team Providers Care Mold Closer Name Role Phone Rachid Heard MD Primary Care Provider [phone] Encounter Details Date Type Department Care Team (Late st Contact Info) Description 09/26/2013 Documentation [facility] [place] [address] [place], [place] [phone] Family Medicine, Physician [address] [place], [place] [phone] Social History Tobacco Use Types Packs/Day Years [...] on filedocumented in this encounter Care Teams Mold Closer Relationship Specialty Start Date End Date Rachid Heard MD [address] [place] [address] [place] [address] PCP - General 03/31/17 09/10/19 documented as of this encounter
== END 2024-11-01 10:13 | disposition home or self-care (01) ==
LOC: HO.HOS 09:05
DX: S62.307A Unspecified fracture of fifth metacarpal bone, left hand, initial encounter for closed fracture (principal)
CPT/HCPCS: 99024

== ENCOUNTER → 2024-11-01 09:07 | Outpatient (BNV) | payer OTHER, SELFPAY | PROVIDERS: Visit Provider Radiology Diagnostic Radiology | DX: S62.327D Displaced fracture of shaft of fifth metacarpal bone, left hand, subsequent encounter for fracture with routine healing (principal) | CPT/HCPCS: 73130 ==

== ENCOUNTER 2024-11-15 08:50 | Outpatient (REF) | payer OTHER, SELFPAY ==
--- NOTE | ~2024-11-15 | XR_ITS ---
EXAMINATION: XR HAND 3 OR MORE VIEWS LEFT HISTORY: M79.642 - Pain in left hand COMPARISON: Comparison is made with the prior examination dated 11/01/2024. FINDINGS: Three views of the left hand are submitted. Osseous mineralization is normal. Again seen is internal fixation of a fracture of the midshaft of the 5th metacarpal with a single K wire. A small amount of callus formation is again seen, without significant change from the prior study. The joint spaces are preserved. The soft tissues are unremarkable. XR/XR hand LT min 3V IMPRESSION: Internally fixed fracture of the midshaft of the 5th metacarpal without significant change. Electronically signed by: Robinson Sánchez MD 11/15/2024 01:43 PM EDT
== END 2024-11-15 08:51 | disposition home or self-care (01) ==
LOC: HO.HOSX 08:50
DX: M79.642 Pain in left hand (principal); S62.307A Unspecified fracture of fifth metacarpal bone, left hand, initial encounter for closed fracture
CPT/HCPCS: 73130; 99212

== ENCOUNTER 2024-11-15 13:21 | Outpatient (AMB) | payer OTHER, SELFPAY ==
--- NOTE | 2024-11-15 13:45 | A.OFFVIS_ITS ---
Vital Signs 11/15/24 13:57 Height 5 ft 10 in Weight 160 lb BMI 23.0 Intake Visit Reasons: LT 5th MC ORIF 10/17/24 AR Intake Note: Tico is a 24 year old right hand dominant male who presents today for a post operative appointment about one month s/p left 5th metacarpal ORIF 10/17/24. At his last visit he was placed in a finger spica cast. Anticipate pin removal today. Cast Removed and XR updated today in office. Patient reports he is doing okay. Having little to no pain at the moment. Allergies No Known Allergies Allergy (Verified 11/15/24 13:57) [facility] Medical History Hx of cardiac pacemaker Congenital heart block Social History Tobacco use type: Smokeless Tobacco Physical Exam Vital Signs: BMI result Body Mass Index 23.0 Assessment & Plan Assessment & Plan (1) Fracture of fifth metacarpal bone of left hand: Code(s): S62.307A - Unspecified fracture of fifth metacarpal bone, left hand, initial encounter for closed fracture Category: Medical Plan History of Present Illness The patient is a 24-year-old male presenting for a follow-up visit after undergoing Closed Reduction and Percutaneous Pinning (CRPP) of a left fifth metacarpal shaft fracture. The patient reports no postoperative pain or signs of infection, such as redness, swelling, or discharge. X-ray findings show satisfactory bony healing with callus formation. The patient denies any sensation changes, confirming intact neurological function. Interim care has been uneventful, with recuperation progressing as expected. Procedure - Removal of surgical pin from the left fifth metacarpal: Informed consent obtained from the patient regarding the pin removal procedure, associated risks, and expected sensations during pin extraction. The patient agreed to proceed. - The procedure was performed using disinfected pin pullers. Careful manual extraction was executed involving gentle twisting and pulling techniques to remove the pin. The patient was advised that only slight discomfort was anticipated, joaquin to a foreign body sensation, ensuring no significant pain. The surgical site was then disinfected, and a light bandage was applied. Review of Systems Musculoskeletal: Denies any pain or abnormal sensations. Skin: Denies redness, swelling, or discharge at the surgical site. Physical Exam - Musculoskeletal- Normal sensation confirmed in all digits of the left hand. Absence of tenderness noted at the left fifth metacarpal fracture site. No erythema, edema, ecchymosis noted. Pin site clean, dry, intact. No evidence of infection. Unable to extend fully at the 5th MCP joint due to pin in place, is able to flex and extend all other digits of the left hand fully and without difficulty Results - Tests and Diagnostics: Radiographs confirm evidence of interval bony healing at the site of the left fifth metacarpal fracture with orthopedic hardware in place and in satisfactory clinical alignment. Plan Postoperative care proceeds with conservative measures, including the application of a velcro wrist splint and joss taping of digits to ensure ongoing healing of the left fifth metacarpal. Velcro wrist splint only with daytime activities, joss taping while awake. Limiting weight-bearing activities to two pounds will continue until reassessment. Hygiene instructions emphasize keeping the surgical site clean and dry to avoid infection. Follow-up radiographic evaluation in four weeks will determine further management steps. Patient was informed and verbally consented to the use of an ambient scribe for clinic note documentation during this visit. Discussion Notes During the visit, I discussed the current status of the left fifth metacarpal fracture, emphasizing the successful interval bony healing observed on radiographs. I informed the patient of the scheduled removal of the surgical pin and explained the procedural steps, expected sensations, and the low risk of s ignificant pain. Consent was obtained for the procedure. The patient and I reviewed postoperative care instructions, hygiene recommendations, and the importance of gradual return to motion and activity restrictions to avoid potential complications such as fracture displacement or infection. We established a follow-up plan for additional radiographic assessment and outlined criteria for discontinuing work limitations, but patient will be out of work for a further 4 weeks to to his job not being able to accommodate a 2 lb weight restriction. Patient Instructions - Avoid immersing the hand in water for one week. - Clean the surgical site with soap and water after 24 hours, ensuring it stays clean and dry. - Use the velcro wrist splint during the day and apply joss tape when awake. - Engage in [id number] exercises at rest. - Out of work until follow-up - Do not lift objects heavier than two pounds. - Follow up in four weeks with repeat x-rays. - Keep the wound dressing applied during sleep until secure closure is observed. Orders: Orders XR hand LT min 3V Today M79.642 - Pain in left hand Coding Level of Care Code Global (05330) Diagnoses Fracture of fifth metacarpal bone of left hand S62.307A
[2024-11-15 13:57] VITALS: BMI 23.0
== END 2024-11-15 14:19 | disposition home or self-care (01) ==
LOC: HO.HOS 13:21
DX: S62.307A Unspecified fracture of fifth metacarpal bone, left hand, initial encounter for closed fracture (principal)
CPT/HCPCS: 99024

== ENCOUNTER → 2024-11-15 13:25 | Outpatient (BNV) | payer OTHER, SELFPAY | PROVIDERS: Visit Provider Radiology Diagnostic Radiology | DX: M79.642 Pain in left hand (principal) | CPT/HCPCS: 73130 ==

== ENCOUNTER 2024-12-13 08:15 | Outpatient (REF) | payer OTHER, SELFPAY ==
--- NOTE | ~2024-12-13 | XR_ITS ---
EXAMINATION: XR HAND, LEFT CLINICAL INFORMATION: M79.642 - Pain in left hand COMPARISON: 11/07/2024, 11/01/2024, 10/15/2024. TECHNIQUE: PA, lateral, and oblique views of the left hand. FINDINGS: K wire has been removed from the fifth metacarpal. There is been continued interval healing with bridging bony callus of the transverse fracture of the mid diaphysis of the fifth metacarpal. There is stable anatomic alignment. No acute fracture or malalignment. Remainder of the head of the wrist appears normal. XR/XR hand LT min 3V IMPRESSION: 1. Removal of K wire from the fifth metacarpal. Continued interval healing of fifth metacarpal fracture in anatomic alignment. Electronically signed by: Nick Artis MD 12/17/2024 08:32 AM EDT
--- OUTSIDE RECORDS SUMMARY | 2024-12-13 08:18 | XMS_ITS | Encounter Summary ---
Author Organization [facility] Address [address] [place] [address] Phone Care Team Providers Care Revenue Cycle Manager Name Role Phone Rachid Heard MD Primary Care Provider [phone] Encounter Details Date Type Department Care Team (Late st Contact Info) Description 04/06/2017 Conversion Encounter [facility] [place] [address] [place] [address] Social History Tobacco Use Types Packs/Day Years [...] on filedocumented in this encounter Care Teams Revenue Cycle Manager Relationship Specialty Start Date End Date Rachid Heard MD [address] [place] [address] PCP - General 03/31/17 09/10/19 documented as of this encounter
--- OUTSIDE RECORDS SUMMARY | 2024-12-13 08:18 | XMS_ITS | Encounter Summary ---
Author Organization [facility] Address [address] [place] [address] Phone Care Team Providers Care Executive Administrator Name Role Phone Rachid Heard MD Primary Care Provider [phone] Encounter Details Date Type Department Care Team (Late st Contact Info) Description 06/30/2011 Documentation [facility] [place] Family Medicine [address] [place] [address] Family Medicine, Physician [address] [place], [place] [phone] Social History Tobacco Use Types Packs/Day Years [...] on filedocumented in this encounter Care Teams Executive Administrator Relationship Specialty Start Date End Date Rachid Heard MD [address] [place] [address] [place] [address] PCP - General 03/31/17 09/10/19 documented as of this encounter
--- OUTSIDE RECORDS SUMMARY | 2024-12-13 08:18 | XMS_ITS | Encounter Summary ---
Author Organization [facility] Address [address] [place] [address] Phone Care Team Providers Care Bear Keeper Name Role Phone Rachid Heard MD Primary Care Provider [phone] Encounter Details Date Type Department Care Team (Late st Contact Info) Description 06/30/2011 Documentation [facility] [place] Family Medicine [address] [place] [address] Family Medicine, Physician [address] [place], [place] [phone] Social History Tobacco Use Types Packs/Day Years [...] on filedocumented in this encounter Care Teams Bear Keeper Relationship Specialty Start Date End Date Rachid Heard MD [address] [place] [address] [place] [address] PCP - General 03/31/17 09/10/19 documented as of this encounter
--- OUTSIDE RECORDS SUMMARY | 2024-12-13 08:19 | XMS_ITS | Encounter Summary ---
Author Organization [facility] Address [address] [place] [address] Phone Care Team Providers Care Instruments Sales Representative Name Role Phone Rachid Heard MD Primary Care Provider [phone] Encounter Details Date Type Department Care Team (Late st Contact Info) Description 09/26/2013 Documentation [facility] [place] [address] [place], [place] [phone] Family Medicine, Physician [address] [place], [place] [phone] Social History Tobacco Use Types Packs/Day Years [...] on filedocumented in this encounter Care Teams Instruments Sales Representative Relationship Specialty Start Date End Date Rachid Heard MD [address] [place] [address] [place] [address] PCP - General 03/31/17 09/10/19 documented as of this encounter
--- OUTSIDE RECORDS SUMMARY | 2024-12-13 08:19 | XMS_ITS | Clinical Summary ---
Author Organization [facility] Address [address] [place] [address] Phone Care Team Providers Care Customs Guard Name Role Phone Unavailable Primary Care Provider Unavailabl e Allergies No known active allergies Medications No known medications Active Problems Problem Noted Date Diagnosed Date Attention deficit disorder (ADD) without hyperac tivity 04/25/2018 Overview (04/25/2018): Adderall prescribed by [facility] 03/09/2017 Epidermal nevus of scalp and neck 04/21/2016 Complete heart block 01/04/2010 Overview (10/04/2017): Diagnosed in 2000 and treated with pacemaker at [facility]. Yearly follow up at [facility] 2013 he presented to [facility] with chest pain and a troponin [...] of *Dental caries, Family history of *Sudden /[place] under 55, Family history of *Heart Disease, Family history of Sudden /[place] under age 55, Family history of *CVA/Stroke [...] patient's age to complete this topic Insurance [facility] NON PCC
== END 2024-12-13 08:16 | disposition home or self-care (01) ==
LOC: HO.HOSX 08:15
DX: M79.642 Pain in left hand (principal); S62.307D Unspecified fracture of fifth metacarpal bone, left hand, subsequent encounter for fracture with routine healing; Z98.890 Other specified postprocedural states
CPT/HCPCS: 73130; 99212

== ENCOUNTER 2024-12-13 13:50 | Outpatient (AMB) | payer OTHER, SELFPAY ==
[2024-12-13 14:10] VITALS: BMI 23.0
--- NOTE | 2024-12-13 14:10 | MHC.OFFVIS ---
Vital Signs 12/13/24 14:10 Height 5 ft 10 in Weight 160 lb BMI 23.0 Intake Visit Reasons: PO-LT 5th MC ORIF 10/17/24 AR-w/xrays Intake Note: Tico is a 24 year old right hand dominant male who presents today for a post operative appointment s/p left 5th metacarpal fracture CRPP DOS: 10/17/[address] Ashley Bourgeois. States he has no pain or concerns. States he is doing well. Allergies No Known Allergies Allergy (Verified 12/13/24 14:14) HPI HPI PO-LT 5th MC ORIF 10/17/24 AR-w/xrays: Details: Tico is a 24 year old right hand dominant male who presents today for a post operative appointment s/p left 5th metacarpal fracture CRPP DOS: 10/17/[address] Ashley Bourgeois. States he has no pain or concerns. States he is doing well. Patient reports he has experienced no discomfort with range of motion of the right hand, and inquires if he can get back to work. 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 [facility] Medical History Hx of cardiac pacemaker Congenital heart block Social History (Reviewed 12/13/24 @ 14:14 by Leah Mathew [facility]) Tobacco use type: Smokeless Tobacco Physical Exam Vital Signs: BMI result Body Mass Index 23.0 Const General: cooperative, healthy appearing and no acute distress Orientation/consciousness: patient oriented x3 HEENT Head: Yes normocephalic and Yes atraumatic Eyes EOM: EOMs intact bilaterally Resp Effort & Inspection: normal respiratory effort and able to speak in complete sentences Cardio Jugular venous distension: no JVD Skin General skin exam: turgor normal Rashes: no rashes Neuro General: patient oriented x3 Extrem Other: Evaluation of Left Upper Extremity: The patient is alert, oriented, and in no acute distress Neuro: Median, Ulnar, Radial nerves motor and sensory intact and sensation is normal to the tips of all digits Vascular: Cap refill brisk ROM: He can make a fist and extend all his digits Skin: No lacerations or abrasions or evidence of open fracture Pin site noted on the dorsal aspect of the left small finger MCP joint, no evidence of infection, well healed General: No Erythema or evidence of infection. Swelling and ecchymosis have resolved No tenderness to palpation of the fracture site Psych Appearance: grossly normal Affect: normal affect Attitude: cooperative Results Reviewed Results Reviewed: X-rays obtained in the office today and independently reviewed by me, Roscoe Burden PA-C, demonstrate surgically reduced fracture of the left 5th metacarpal shaft with all orthopedic hardware in place, in satisfactory clinical alignment, and with evidence of interval bony healing. Assessment & Plan Assessment & Plan (1) Fracture of fifth metacarpal bone of left hand: Code(s): S62.307A - Unspecified fracture of fifth metacarpal bone, left hand, initial encounter for closed fracture Category: Medical Plan 1. Status post CRPP of left 5th metacarpal DOS 10/17/2024 Patient appears to be recovering well postoperatively Patient is educated about the typical recovery course At this time, patient was advised he can discontinue use of the Velcro wrist splint, and should only use the joss tape with daytime activities Patient was advised he can slowly increase up to a 15 lb weight limit in the left hand over the next 4 weeks, however as he routinely needs to lift more than 50 lb at work I do not feel he should return to work at this time Patient was amenable to this plan Patient will follow-up in 4 weeks with repeat x-rays for reassessment, anticipate clearance to return to work at that time, sooner with any acute concerns Orders: Orders XR hand LT min 3V 12/13/24 M79.642 - Pain in left hand Coding Level of Care Code Global (69318) Diagnoses Fracture of fifth metacarpal bone of left hand S62.307A
--- OUTSIDE RECORDS SUMMARY | 2024-12-13 14:32 | XMS_ITS | Encounter Summary ---
Author Organization [facility] Address [address] [place] [address] Phone Care Team Providers Care Goodyear Stitcher Name Role Phone Rachid Heard MD Primary Care Provider [phone] Encounter Details Date Type Department Care Team (Late st Contact Info) Description 09/26/2013 Documentation [facility] [place] [address] [place], [place] [phone] Family Medicine, Physician [address] [place], [place] [phone] Social History Tobacco Use Types Packs/Day Years [...] on filedocumented in this encounter Care Teams Goodyear Stitcher Relationship Specialty Start Date End Date Rachid Heard MD [address] [place] [address] [place] [address] PCP - General 03/31/17 09/10/19 documented as of this encounter
--- OUTSIDE RECORDS SUMMARY | 2024-12-13 14:32 | XMS_ITS | Clinical Summary ---
Author Organization [facility] Address [address] [place] [address] Phone Care Team Providers Care Hair Salon Manager Name Role Phone Unavailable Primary Care Provider Unavailabl e Allergies No known active allergies Medications No known medications Active Problems Problem Noted Date Diagnosed Date Attention deficit disorder (ADD) without hyperac tivity 04/25/2018 Overview (04/25/2018): Adderall prescribed by [facility] 03/09/2017 Epidermal nevus of scalp and neck 04/21/2016 Complete heart block 01/04/2010 Overview (10/04/2017): Diagnosed in 2000 and treated with pacemaker at [facility]. Yearly follow up at [facility] 2013 he presented to [facility] with chest pain and a troponin [...] of *Dental caries, Family history of *Sudden /[place] under 55, Family history of *Heart Disease, Family history of Sudden /[place] under age 55, Family history of *CVA/Stroke [...] patient's age to complete this topic Insurance [facility] NON PCC
--- OUTSIDE RECORDS SUMMARY | 2024-12-13 14:32 | XMS_ITS | Encounter Summary ---
Author Organization [facility] Address [address] [place] [address] Phone Care Team Providers Care Helmet Coverer Name Role Phone Rachid Heard MD Primary Care Provider [phone] Encounter Details Date Type Department Care Team (Late st Contact Info) Description 04/06/2017 Conversion Encounter [facility] [place] [address] [place] [address] Social History Tobacco Use Types Packs/Day Years [...] on filedocumented in this encounter Care Teams Helmet Coverer Relationship Specialty Start Date End Date Rachid Heard MD [address] [place] [address] PCP - General 03/31/17 09/10/19 documented as of this encounter
--- OUTSIDE RECORDS SUMMARY | 2024-12-13 14:32 | XMS_ITS | Encounter Summary ---
Author Organization [facility] Address [address] [place] [address] Phone Care Team Providers Care Replenishment Buyer Name Role Phone Rachid Heard MD Primary Care Provider [phone] Encounter Details Date Type Department Care Team (Late st Contact Info) Description 06/30/2011 [place]ation [facility] [place] [address] [place] [address] Family Medicine, Physician [address] [place], [place] [phone] Social History Tobacco Use Types Packs/Day Years [...] on filedocumented in this encounter Care Teams Replenishment Buyer Relationship Specialty Start Date End Date Rachid Heard MD [address] [place] [address] [place] [address] PCP - General 03/31/17 09/10/19 documented as of this encounter
--- OUTSIDE RECORDS SUMMARY | 2024-12-13 14:32 | XMS_ITS | Encounter Summary ---
Author Organization [facility] Address [address] [place] [address] Phone Care Team Providers Care Client Partner Name Role Phone Rachid Heard MD Primary Care Provider [phone] Encounter Details Date Type Department Care Team (Late st Contact Info) Description 06/30/2011 Documentation [facility] [place] [address] [place] [address] Family Medicine, Physician [address] [place], [place] [phone] Social History Tobacco Use Types Packs/Day Years [...] on filedocumented in this encounter Care Teams Client Partner Relationship Specialty Start Date End Date Rachid Heard MD [address] [place] [address] [place] [address] PCP - General 03/31/17 09/10/19 documented as of this encounter
== END 2024-12-13 14:37 | disposition home or self-care (01) ==
LOC: HO.HOS 13:50
DX: S62.307A Unspecified fracture of fifth metacarpal bone, left hand, initial encounter for closed fracture (principal)
CPT/HCPCS: 99024

== ENCOUNTER → 2024-12-13 13:56 | Outpatient (BNV) | payer OTHER, SELFPAY | PROVIDERS: Visit Provider Radiology Diagnostic Radiology | DX: M79.642 Pain in left hand (principal) | CPT/HCPCS: 73130 ==

== ENCOUNTER 2025-01-10 14:31 | Outpatient (AMB) | payer MEDICAID, SELFPAY ==
--- OUTSIDE RECORDS SUMMARY | 2025-01-10 14:33 | XMS_ITS | Encounter Summary ---
Author Organization [facility] Address [address] [place] [address] Phone Care Team Providers Care Spring Coverer Name Role Phone Rachid Heard MD Primary Care Provider [phone] Encounter Details Date Type Department Care Team (Late st Contact Info) Description 04/06/2017 Conversion Encounter [facility] [place] [address] [place] [address] Social History Tobacco Use Types Packs/Day Years [...] on filedocumented in this encounter Care Teams Spring Coverer Relationship Specialty Start Date End Date Rachid Heard MD [address] [place] [address] PCP - General 03/31/17 09/10/19 documented as of this encounter
--- NOTE | 2025-01-10 14:44 | A.OFFVIS_ITS ---
Intake Visit Reasons: PO- LT 5th MC ORIF 10/17/24 AR-w/xrays Intake Note: Tico is a 24 year old right hand dominant male who presents today post- operatively s/p left 5th metacarpal ORIF, DOS: 10/17/[address] Ashley Bourgeois. At today's visit patient reports he is having no pain, no numbness and no tingling. Patient able to make a full closed fist and squeeze. Denies stiffness. Patient has increased weight in hand slowly. 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 Allergies No Known Allergies Allergy (Verified 01/10/25 14:46) HPI HPI PO- LT 5th MC ORIF 10/17/24 AR-w/xrays: Details: Tico is a 24 year old right hand dominant male who presents today post- operatively s/p left 5th metacarpal ORIF, DOS: 10/17/[address] Ashley Bourgeois. At today's visit patient reports he is having no pain, no numbness and no tingling. Patient able to make a full closed fist and squeeze. Denies stiffness. Patient has increased weight in hand slowly. 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 [facility] Medical History Hx of cardiac pacemaker Congenital heart block Social History (Updated 01/10/25 @ 14:46 by MONALISA To) Tobacco use type: Smokeless Tobacco Current occupational status: employed Current occupation: right handed Review of Systems Const All systems reviewed & are unremarkable except as noted in HPI and below Physical Exam Const General: cooperative, healthy appearing and no acute distress Orientation/consciousness: patient oriented x3 HEENT Head: Yes normocephalic and Yes atraumatic Eyes EOM: EOMs intact bilaterally Resp Effort & Inspection: normal respiratory effort and able to speak in complete sentences Cardio Jugular venous distension: no JVD Skin General skin exam: turgor normal Rashes: no rashes Neuro General: patient oriented x3 Extrem Other: Evaluation of Left Upper Extremity: The patient is alert, oriented, and in no acute distress Neuro: Median, Ulnar, Radial nerves motor and sensory intact and sensation is normal to the tips of all digits Vascular: Cap refill brisk ROM: He can make a fist and extend all his digits Skin: No lacerations or abrasions or evidence of open fracture Pin site noted on the dorsal aspect of the left small finger MCP joint, no evidence of infection, well healed General: No Erythema or evidence of infection. Swelling and ecchymosis have resolved No tenderness to palpation of the fracture site Psych Appearance: grossly normal Affect: normal affect Attitude: cooperative Assessment & Plan Assessment & Plan (1) Fracture of fifth metacarpal bone of left hand: Code(s): S62.307A - Unspecified fracture of fifth metacarpal bone, left hand, initial encounter for closed fracture Category: Medical Plan 1. Status post CRPP of left 5th metacarpal DOS 10/17/2024 Patient appears to be recovering well postoperatively Patient is educated about the typical recovery course At this time, patient was advised he can discontinue use of the Velcro wrist splint and joss taping Return to work with no restrictions at this time Patient was amenable to this plan Patient will follow-up as needed with any acute concerns Coding Level of Care Code Global (01266) Diagnoses Fracture of fifth metacarpal bone of left hand S62.307A
== END 2025-01-10 14:51 | disposition home or self-care (01) ==
LOC: HO.HOS 14:32
DX: S62.307A Unspecified fracture of fifth metacarpal bone, left hand, initial encounter for closed fracture (principal)
CPT/HCPCS: 99024

== ENCOUNTER → 2025-01-10 14:31 | Outpatient (BNVA) | payer MEDICAID, SELFPAY | DX: S62.307D Unspecified fracture of fifth metacarpal bone, left hand, subsequent encounter for fracture with routine healing (principal); X58.XXXD Exposure to other specified factors, subsequent encounter; Z98.890 Other specified postprocedural states | CPT/HCPCS: 99212 ==